=== PATIENT | female | born 1985 | race Caucasian/White ===

== ENCOUNTER 2016-12-10 11:48 | Outpatient (CLI) | payer MEDICAID ==
[~2016-12-10] VITALS: Ht 162.6 cm; Wt 73.8 kg
[2016-12-10 11:59] VITALS: BP 104/57; PULSE 111; RESP 20; Ht 162.6 cm; Wt 73.8 kg
[2016-12-10] MEDS ORDERED: PREN1TAB79 PO (12:02)
--- NOTE | 2016-12-10 12:50 | RADRPT ---
PROCEDURE: US OB biophysical profile. CLINICAL INDICATION: decreased movements, PTL TECHNIQUE: Multiple sonographic images of the pelvis were obtained. The images were reviewed on a PACS workstation. COMPARISON: No prior studies are available for comparison. FINDINGS: There is a single viable intrauterine gestation. Cardiac activity is present with 154 beats per min q[place]. There is a vertex presentation. The placenta is anterior. There is no evidence of placental abruption. There is a normal amount of amniotic fluid with an ZARA = 9.6 cm. Biophysical profile: movement 2/2 tone 2/2. breathing 2/2 ZARA 2/2 Total 02/14 RPTAT: AA . IMPRESSION: Normal biophysical profile. . .Vitaliy Jurado MD, MD Date Time Electronically viewed and signed by .Vitaliy Jurado MD, MD on 12/10/2016 12:49 .S/
--- NOTE | 2016-12-10 13:23 | QN ---
Documentation Comment Laborist Dr Ware's pt 31 y.o. with an IUP at 35w 1d c/o UC's. Upon questioning the UC's are only twice a day x 1 week. No VB or leaking. +FM. PMHx: none. PSHx: C/S x 1. NKDA. T= 98.0 BP 104/57 NST:baseline 140 bpm with accels to 160 bpm. No decels. No UC's. BPP 8/8. ZARA 9.6 cm. A: IUP at 35w 1d. False labor. P: D/C home. F/U with her doctor as scheduled. ROSARIO YEPEZ MD Dec 10, 2016 13:23
--- NOTE | 2016-12-10 13:26 | TRIAGE ---
OB Triage Datetime Report Generated by CPN: 12/10/2016 13:26 Datetime: 12/10/2016 11:55 Time of Arrival: 12/10/2016 11:56 EGA: 35.1 Arrived By: Ambulatory Arrived From: Home Chief Complaint: CRAMP 2 DAILY Movement: Present Contractions: Irregular Rupture of Membranes: Denies Vaginal Bleeding: None Vaginal Discharge: Denies Recent Sexual Intercouse: Denies Abdominal Trauma: Not Applicable Patient Complaints: Cramping Provider Notified: ANDRES Initial Plan: EFM,CALL DR CAMPOS Datetime: 12/10/2016 11:54 Maternal Assessment Level of Consciousness: Fully Conscious Maternal Assessment Level of Consciousness: Fully Conscious DTR's/Clonus: DTRs 2+ DTR's/Clonus: DTRs 2+; No Clonus Headache: Denies Headache: Denies Blurred Vision: No Blurred Vision: No Respiratory Effort: Unlabored; Regular Rhythm; Equal Expansion Breath Sounds, Left: Clear and Equal Breath Sounds, Right: Clear and Equal Nausea/Vomiting: Denies Nausea/Vomiting: Denies RUQ Epigastric Pain: Denies RUQ Epigastric Pain: Denies Facial Edema: None Facial Edema: None Temperature Route: Axillary Fall Risk Assessment History of Falling: (0) No Secondary Diagnosis: (0) No Ambulatory Aid: (0) Bedrest/Nurse Assist IV Therapy: (0) No Gait: (0) Normal/Bedrest/Immobile Mental Status: (0) Oriented to Own Ability Fall Score: 0 Fall Risk Score Definition: No Risk: No action required Labor Evaluation Frequency: NONE AT THIS TIME Pattern: Normal: <= 5 Contractions in 10 Minutes Resting Tone [place]: Relaxed Heart Rate FHR Baseline Rate: 150 Monitor Mode: External US FHR Baseline Changes: No Baseline Change Variability: Moderate 6-25 bpm Accelerations: 15X15 Decelerations: None Category: Category I Pain Assessment Pain Scale: 0 Pain Presence: None/Denies Vaginal Exam Membrane Status: Intact
== END 2016-12-10 13:25 | disposition home or self-care (01) ==
LOC: OBT 11:48 → L-D 11:53 → OBT 13:25
PROVIDERS: ATTEND Obstetrics & Gynecology
DX: O62.9 Abnormality of forces of labor, unspecified (principal); Z3A.35 35 weeks gestation of pregnancy
CPT/HCPCS: 76818; Z7500; G0463

== ENCOUNTER 2017-01-06 10:11 | Inpatient (IN) | payer MEDICAID ==
[~2017-01-06] VITALS: Ht 162.6 cm; Wt 74.4 kg
[~2017-01-06 10:11] MED LIST: PREN1TAB79 PO
[2017-01-06 10:30] VITALS: BP 114/70; PULSE 104; RESP 18
[2017-01-06 10:50] VITALS: BMI 28.1
--- NOTE | 2017-01-06 10:52 | TRIAGE ---
OB Triage Datetime Report Generated by CPN: 01/06/2017 10:51 Datetime: 01/06/2017 10:35 Assessment Type: Triage Maternal Assessment Level of Consciousness: Fully Conscious DTR's/Clonus: DTRs 2+; No Clonus Headache: Denies Blurred Vision: No Respiratory Effort: Unlabored; Regular Rhythm; Equal Expansion Breath Sounds, Left: Clear and Equal Breath Sounds, Right: Clear and Equal Nausea/Vomiting: Denies RUQ Epigastric Pain: Denies Lower Extremities Edema: Bilateral Lower Extremities Degree: 1+ Upper Extremities Edema: None Degree: None Facial Edema: None Fall Risk Assessment History of Falling: (0) No Secondary Diagnosis: (0) No Ambulatory Aid: (0) Bedrest/Nurse Assist IV Therapy: (0) No Gait: (0) Normal/Bedrest/Immobile Mental Status: (0) Oriented to Own Ability Fall Score: 0 Fall Risk Score Definition: No Risk: No action required Datetime: 01/06/2017 10:29 Time of Arrival: 01/06/2017 10:05 EGA: 39.0 Arrived By: Ambulatory Arrived From: Home Chief Complaint: UC, vaginal discharge Movement: Present Contractions: Occasional Rupture of Membranes: Denies Vaginal Discharge: Denies Recent Sexual Intercouse: Denies Abdominal Trauma: Not Applicable Patient Complaints: Contractions Time Provider Notified: 01/06/2017 10:39 Provider Notified: Jeanie Initial Plan: NST, VE Datetime: 01/06/2017 10:19 Vaginal Exam Dilatation (cms): 0.5 Effacement (%): 0 Station: -3 Exam By: Letha RN Datetime: 01/06/2017 10:18 EGA: 35.1 Datetime: 12/10/2016 11:55 EGA: 35.1 Datetime: 12/10/2016 11:54 Fall Score: 0 Fall Risk Score Definition: No Risk: No action required
[2017-01-06] MEDS ORDERED: CARBOPROST 250 MCG INJ IM PRN (11:00)
[2017-01-06] MEDS ORDERED: OXYTOCIN 30 UNITS/LR 500 ML IV PRN (11:00)
[2017-01-06] MEDS ORDERED: METHYLERGONOVINE 0.2 MG INJ IM PRN (11:00)
[2017-01-06] MEDS ORDERED: MISOPROSTOL 200 MCG TAB PR PRN (11:00)
[2017-01-06] MEDS ORDERED: CEFAZOLIN 2 GM/50 ML (PMX) 50 ML IV SCH (11:00)
[2017-01-06] MEDS: LACTATED RINGER'S 1,000 ML IV SCH ×2 (11:05→12:20)
[2017-01-06 11:32] VITALS: BP 114/70; PULSE 104; RESP 18; Ht 162.6 cm; Wt 74.4 kg
[2017-01-06 11:35] LABS: BASOPHILS % 0.3 % (0.0-2.0); HEMATOCRIT 35.8 % (37.0-47.0); LYMPHOCYTES # 1.5 10^3/ul (0.8-2.9); MEAN CORPUSCULAR HEMOGLOBIN 28.6 pg (29.0-33.0); MEAN CORPUSCULAR HGB CONC 33.5 g/dl (32.0-37.0); MEAN CORPUSCULAR VOLUME 85.2 fl (82.0-101.0); MEAN PLATELET VOLUME 10.8 fl (7.4-10.4); MONOCYTE # 0.5 10^3/ul (0.3-0.9); MONOCYTES % 5.1 % (0.0-11.0); NEUTROPHILS % 79.2 % (39.0-77.0); PLATELET COUNT 273 10^3/UL (140-415); RED CELL DISTRIBUTION WIDTH 13.4 % (11.5-14.5); WHITE BLOOD COUNT 10.1 10^3/ul (4.8-10.8)
[2017-01-06 11:42] LABS: ADD SCAN DIFF NO
[2017-01-06 11:52] LABS: INR 0.96; PROTIME 12.8 Sec (12.2-14.2)
[2017-01-06 11:53] LABS: PARTIAL THROMBOPLASTIN TIME 25.8 Sec (25.0-35.0)
[2017-01-06] MEDS ORDERED: CITRIC ACID/SODIUM CITRATE 15 ML CUP ONE (12:30)
[2017-01-06] MEDS ORDERED: METOCLOPRAMIDE 10 MG INJ ONE (12:32)
[2017-01-06] MEDS ORDERED: KETOROLAC 30 MG INJ ONE (12:32)
[2017-01-06] MEDS ORDERED: ONDANSETRON 4 MG INJ ONE (12:32)
[2017-01-06] MEDS ORDERED: morphine SULFATE/PF (10 MG/10 ML) INJ ONE (12:32)
[2017-01-06] MEDS ORDERED: PHENYLephrine (100 MCG/ML) 5ML SYG ONE (12:59)
[2017-01-06] MEDS ORDERED: CITRIC ACID/SODIUM CITRATE 15 ML CUP PO ONE (13:00)
[2017-01-06] MEDS ORDERED: MEPERIDINE 100 MG INJ ONE (13:23)
[2017-01-06] MEDS ORDERED: OXYTOCIN 30 UNITS/LR 500 ML IV ONE (13:32)
--- NOTE | 2017-01-06 13:40 | HP ---
Date/Time of Note Date/Time of Note DATE: 01/06/17 TIME: 13:39 OB - History Hx of Present Free Text/Dictation @39+wks GA with Hx of previous c/section in labor : 2 Para: 1 Care: Good Care Ultrasounds: Normal mid trimester US Medical Complications: None Past Family/Social History * Past Medical, Surgical, Family and Obstetric Histories reviewed from chart. OB Admission Exam Vital Signs Vital Signs Vital Signs Date Time Temp Pulse Resp B/P Pulse Ox O2 Delivery O2 Flow Rate FiO2 01/06/17 11:32 98.6 104 18 114/70 100 01/06/17 10:30 Room Air Physical Exam Abdomen: WNL Extremities: Normal Cervical Dilatation: 1cm Effacement: 75% Membranes: Intact Heart Rate: 140's Accelerations: Accelerations Present Varibility: Moderate Contractions on Admission: 6-10 Minutes Apart Last 72 hours Lab Results CBC & BMP 01/06/17 11:20 OB Assessment/Plan Reason for admission: section Plan: Section GUILLERMO CAMPOS M.D. Jan 06, 2017 13:40
--- NOTE | 2017-01-06 13:42 | OPR ---
Operative Report Planned Procedure Free Text/Dictation 39+wks GA with Hx of previous c/section in labor Procedure date Jan 06, 2017 Procedure(s) Repeat c/section Performed by: GUILLERMO CAMPOS M.D. Assisting provider: CARLEY MACHADO MD Anesthesiologist: ZAYDA PERALTA MD Pre-procedure diagnosis 39+wks GA with Hx of previous c/section in labor Procedure Description Under satisfactory [] anesthesia, the patient was prepped and draped and placed in a supine position, tilted to the left. Pfannenstiel incision was made, carried through the subcutaneous tissue. Bleeders brought under control with electrocautery. Fascia incised to the length of the incision. Rectus muscles from the fascia, divided midline. Peritoneum exposed, entered through a transverse incision. Exploration of abdomen revealed gravid uterus. Bladder flap was developed. Transverse incision was made in the lower segment of the uterus. Amniotic sac ruptured. [] amniotic fluid noted. [] Nasal oropharyngeal suction was performed. The baby was handed to the team for immediate attention. The placenta was delivered manually intact. Uterine cavity was cleaned with wet sponge and drainage established. Uterus closed in 2 layers using [] in continuous fashion. Peritoneal cavity irrigated with warm saline. Sponge, needle and instrument count reported to be correct. Abdominal peritoneum closed with [] continuously. Rectus muscle approximated with []. Fascia closed with [], and skin closed with dermoband. Estimated blood loss [200 ]mL. Urine bag contained []mL of urine Post-Procedure Findings: Live Baby [], Apgars [] and [], weight [], position [], [] presentation []cord. Specimen removed: Yes Complications: None Pt Condition post procedure: stable Disposition: PACU Physician Certification I, the undersigned physician, hereby certify that I have discussed the procedure described in this consent form with this patient (or the patient's legal customer response representative), including: * The risk and benefits of the procedure; * Any adverse reactions that may reasonably be expected to occur; * Any alternative efficacious methods of treatment which may be medically viable ; * The potential problems that may occur during recuperation; * Potential for blood transfusion and associated risks/benefits; and * Any research or economic interest I may have regarding this treatment. I further certify that the patient/legally responsible person was encouraged to ask question and that all questions were answered. GUILLERMO CAMPOS M.D. Jan 06, 2017 13:42
[2017-01-06] MEDS ORDERED: KETOROLAC 30 MG INJ IV PRN (14:00)
[2017-01-06] MEDS ORDERED: HYDROmorphONE 1 MG/ML SYG IV PRN ×3 (14:00)
[2017-01-06] MEDS ORDERED: HYDROmorphONE (0.2 MG/ML) 10ML SYG IV PRN ×3 (14:00)
[2017-01-06] MEDS ORDERED: DIPHENHYDRAMINE 50 MG INJ IV PRN ×2 (14:00)
[2017-01-06] MEDS ORDERED: NALOXONE (0.4 MG/ML) INJ IV PRN (14:00)
[2017-01-06] MEDS ORDERED: ONDANSETRON 4 MG INJ IV PRN ×2 (14:00)
[2017-01-06] MEDS ORDERED: METOCLOPRAMIDE 10 MG INJ IV PRN (14:00)
[2017-01-06] MEDS ORDERED: MEPERIDINE 25 MG INJ IV PRN (14:00)
[2017-01-06] MEDS: OXYTOCIN 30 UNITS/LR 500 ML IV SCH ×2 (15:22→20:15)
[2017-01-06 17:10] LABS: BASOPHILS % 0.1 % (0.0-2.0); HEMOGLOBIN 10.6 g/dl (12.0-16.0); LYMPHOCYTES # 1.5 10^3/ul (0.8-2.9); LYMPHOCYTES % 10.4 % (15.0-51.0); MEAN CORPUSCULAR HEMOGLOBIN 27.7 pg (29.0-33.0); MEAN CORPUSCULAR HGB CONC 32.1 g/dl (32.0-37.0); MEAN CORPUSCULAR VOLUME 86.2 fl (82.0-101.0); MEAN PLATELET VOLUME 10.5 fl (7.4-10.4); MONOCYTES % 6.9 % (0.0-11.0); NEUTROPHIL # 11.9 10^3/ul (1.6-7.5); NEUTROPHILS % 82.2 % (39.0-77.0); PLATELET COUNT 237 10^3/UL (140-415); RED BLOOD COUNT 3.83 10^6/ul (4.20-5.40); RED CELL DISTRIBUTION WIDTH 13.4 % (11.5-14.5); WHITE BLOOD COUNT 14.5 10^3/ul (4.8-10.8)
[2017-01-06 17:11] LABS: ADD SCAN DIFF NO
[2017-01-06] MEDS ORDERED: LACTATED RINGER'S 1,000 ML IV STA (17:20)
[2017-01-06] MEDS ORDERED: SOD CHLORIDE 0.9% 500 ML IV ONE (20:30)
[2017-01-06] MEDS ORDERED: PAROXETINE 10 MG TAB PO ONE (22:55)
[2017-01-06] MEDS ORDERED: SOD CHLORIDE 0.9% 1,000 ML IV ONE (23:00)
[2017-01-07 00:40] VITALS: BP 118/66; PULSE 103; RESP 20
[2017-01-07] MEDS ORDERED: METHYLERGONOVINE 0.2 MG INJ IM PRN (02:00)
[2017-01-07] MEDS ORDERED: OXYTOCIN 30 UNITS/LR 500 ML IV PRN (02:00)
[2017-01-07] MEDS ORDERED: MISOPROSTOL 200 MCG TAB PR PRN (02:00)
[2017-01-07] MEDS ORDERED: CARBOPROST 250 MCG INJ IM PRN (02:00)
[2017-01-07] MEDS: LACTATED RINGER'S 1,000 ML IV SCH ×3 (02:59→17:52)
[2017-01-07 04:10] VITALS: BP 123/58; PULSE 105; RESP 18
--- NOTE | 2017-01-07 07:01 | PN ---
Date/Time of Note Date/Time of Note DATE: 01/07/17 TIME: 06:58 Assessment/Plan VTE Prophylaxis VTE Prophylaxis Intervention: ambulation Lines/Catheters IV Catheter Type (from Nrsg): Peripheral IV Subjective 24 Hr Interval Summary Free Text/Dictation Anesthesia Note; A 31 year olfd female s/p duramorph pod #1 is doing fine. pain is controlled, no N/V, headache, itching, back pain. back is clean, no irritation or infection. Care per surgery team. Exam/Review of Systems Vital Signs Vitals Vital Signs Date Time Temp Pulse Resp B/P Pulse Ox O2 Delivery O2 Flow Rate FiO2 01/07/17 04:10 98.3 105 18 123/58 Room Air 01/07/17 02:35 98 21 Intake and Output 01/06/17 01/06/17 01/07/17 15:00 23:00 07:00 Intake Total 3080 ml 2275 ml 1790 ml Output Total 1798 ml 400 ml 1350 ml Balance 1282 ml 1875 ml 440 ml Results Result Diagram: 01/06/17 1659 Results 24 hrs Laboratory Tests Test 01/06/17 11:20 01/06/17 16:59 White Blood Count 10.1 14.5 #H Red Blood Count 4.20 3.83 L Hemoglobin 12.0 10.6 L Hematocrit 35.8 L 33.0 L Mean Corpuscular Volume 85.2 86.2 Mean Corpuscular Hemoglobin 28.6 L 27.7 L Mean Corpuscular Hemoglobin Concent 33.5 32.1 Red Cell Distribution Width 13.4 13.4 Platelet Count 273 237 Mean Platelet Volume 10.8 H 10.5 H Neutrophils % 79.2 H 82.2 H Lymphocytes % 15.0 10.4 L Monocytes % 5.1 6.9 Eosinophils % 0.0 0.0 Basophils % 0.3 0.1 Nucleated Red Blood Cells % 0.0 0.0 Neutrophils # 8.0 H 11.9 H Lymphocytes # 1.5 1.5 Monocytes # 0.5 1.0 H Eosinophils # 0.0 0.0 Basophils # 0.0 0.0 Nucleated Red Blood Cells # 0.0 0.0 Prothrombin Time 12.8 Prothrombin Time Ratio 1.0 INR International Normalized Ratio 0.96 Activated Partial Thromboplast Time 25.8 Rapid Plasma Reagin NONREACTIVE Medications Medications Current Medications Naloxone HCl (Narcan) 0.1 mg Q2M PRN IV FOR RESP RATE 8 OR LESS; Start at 14:00; Stop 01/07/17 at 13:59 Ketorolac Tromethamine (Toradol) 30 mg Q6H PRN IV PAIN Last administered on 01/07t 02:58; Admin Dose 30 MG; Start 01/06/17 at 14:00; Stop 01/07/17 at 13:59 Hydromorphone HCl (Dilaudid) 1 mg Q3H PRN IV BREAKTHROUGH PAIN; Start 01/06/17 at 14:00; Stop 01/07/17 at 13:59 Hydromorphone HCl (Dilaudid) 0.2 mg Q3H PRN IV PAIN LEVEL 1-5; Start 01/06/17 at 14:00; Stop 01/07/17 at 13:59 Hydromorphone HCl (Dilaudid) 0.4 mg Q3H PRN IV PAIN LEVEL 6-10; Start 01/06/17 at 14:00; Stop 01/07/17 at 13:59 Diphenhydramine HCl (Benadryl) 25 mg Q6H PRN IV ITCHING; Start 01/06/17 at 14: 00; Stop 01/07/17 at 13:59 Ondansetron HCl (Zofran Inj) 4 mg Q6H PRN IV NAUSEA AND/OR VOMITING; Start at 14:00; Stop 01/07/17 at 13:59 Paroxetine HCl 10 mg 10 mg HS PO ; Start 01/07/17 at 21:00 Lactated Ringer's (Lr) 1,000 ml @ 125 mls/hr Q8H IV Last administered on t 02:59; Admin Dose 125 MLS/HR; Start 01/07/17 at 01:32 Oxycodone/ Acetaminophen (Percocet (5/ 325)) 2 tab Q4H PRN PO PAIN LEVEL 7-10; Start 01/07/17 at 14:00 Ibuprofen (Motrin) 600 mg Q6 PO ; Start 01/07/17 at 18:00 Simethicone (Mylicon) 160 mg Q8H PRN PO DISTENSION/GAS/BLOATING; Start 01/07/17 at 02:00 Senna/Docusate Sodium (Senokot-S) 1 tab BID PO ; Start 01/07/17 at 09:00 Diphtheria/ Tetanus/Acell Pertussis 0.5 ml 0.5 ml ONCE ONCE IM* ; Start 01/09/17 at 09:00; Stop 01/09/17 at 09:01 Oxytocin/Lactated Ringer's 500 ml @ 0 mls/hr ONCE PRN IV For Hemorrhage Management; Start 01/07/17 at 02:00 Methylergonovine Maleate (Methergine) 0.2 mg ONCE PRN IM VAGINAL BLEEDING; Start 01/07/17 at 02:00 Carboprost Tromethamine (Hemabate) 250 mcg ONCE PRN [place] VAGINAL BLEEDING; Start 01/07/17 at 02:00 Misoprostol (Cytotec) 1,000 mcg ONCE PRN [place] VAGINAL BLEEDING; Start 01/07/17 at 02:00 ZAYDA PERALTA MD Jan 07, 2017 07:00
[2017-01-07 08:00] VITALS: BP 111/70; PULSE 103; RESP 18
[2017-01-07] MEDS: SENNA/DOCUSATE NA (8.6MG/50MG) TAB PO SCH ×2 (09:00→21:00)
[2017-01-07 09:05] LABS: BASOPHILS % 0.2 % (0.0-2.0); EOSINOPHILS % 0.1 % (0.0-7.0); HEMATOCRIT 26.7 % (37.0-47.0); HEMOGLOBIN 8.5 g/dl (12.0-16.0); LYMPHOCYTES # 1.2 10^3/ul (0.8-2.9); LYMPHOCYTES % 10.9 % (15.0-51.0); MEAN CORPUSCULAR HEMOGLOBIN 27.5 pg (29.0-33.0); MEAN CORPUSCULAR HGB CONC 31.8 g/dl (32.0-37.0); MEAN CORPUSCULAR VOLUME 86.4 fl (82.0-101.0); MEAN PLATELET VOLUME 10.8 fl (7.4-10.4); MONOCYTE # 0.7 10^3/ul (0.3-0.9); MONOCYTES % 6.5 % (0.0-11.0); NEUTROPHILS % 81.9 % (39.0-77.0); PLATELET COUNT 212 10^3/UL (140-415); RED BLOOD COUNT 3.09 10^6/ul (4.20-5.40); RED CELL DISTRIBUTION WIDTH 13.9 % (11.5-14.5)
[2017-01-07 11:56] VITALS: BP 100/62; PULSE 107; RESP 18
--- NOTE | 2017-01-07 13:43 | QN ---
Documentation Comment POD#1 is stable afebrile tolerates diet No VB +Flatus +adequate urine VS stable Gen NAD Abd soft NT mildly distended Genitalia No blood at perinium --->discharge plan tomorrow --->ambulation GUILLERMO CAMPOS M.D. Jan 07, 2017 13:43
[2017-01-07] MEDS ORDERED: KETOROLAC 30 MG INJ IV PRN (15:30)
[2017-01-07 15:55] VITALS: BP 113/69; PULSE 103; RESP 19
[2017-01-07] MEDS ORDERED: NA PHOSPHATE/BIPHOS 133 ML ENEMA PR PRN (17:30)
[2017-01-07] MEDS: IBUPROFEN 600 MG TAB PO SCH (18:00)
[2017-01-07] MEDS ORDERED: ONDANSETRON 4 MG INJ IV PRN (18:30)
[2017-01-07 20:00] VITALS: BP 114/61; PULSE 106; RESP 20
[2017-01-07] MEDS: OXYCODONE/ACETAMINOPHEN (5/325) TAB PO PRN (20:58)
[2017-01-07] MEDS: PAROXETINE 10 MG TAB PO SCH (21:23)
[2017-01-08] MEDS: LACTATED RINGER'S 1,000 ML IV SCH ×3 (00:56→17:13)
--- NOTE | 2017-01-08 01:16 | CONS ---
Date/Time of Note Date/Time of Note DATE: 01/07/17 TIME: 05:57 Assessment/Plan Assessment/Plan Chief Complaint/Hosp Course This is a 31-year-old female who is currently postop day 0 for 39 weeks . #1 tachycardia: At the current times patient's initial tachycardia has improved from 140s now down to the 100-110s. She did receive fluid boluses. She denies any shortness of breath or chest pain. Her oxygenation is 97% on room air. She denies any pleuritic pain on respiration. She does state that she is mildly anxious. I feel at this time that this tachycardia most likely is result of anxiety and also as well as insensible fluid losses from surgery as well as some dehydration. At the current time I would like the patient to receive another bolus of normal saline over 2 hours once her current fluid are completed. We will continue to monitor the patient. If she indeed continues to have tachycardia and has any episodes of desaturation of her oxygen levels may consider a CTA for PE however this time I do not feel that she has a PE. #2 anxiety: Patient has been taking Paxil on a relatively routine basis over the last 9 years. The risks and benefits of taking the medication as well as the risks and benefits of taking the medication while breast-feeding specifically were discussed with the patient patient was previously on Paxil during her last and was breast-feeding at that time. She understands risks and benefits of this medication. I did state that I would not want her to abruptly stop the medication that she has been on for such a long time however I did recommend that she could consider possibly formula feeding. She however does understand the risks and benefits and she would like to continue breast-feeding at this time. I did review the safety profiles of Paxil as well as other SSRIs with the patient and from the literature data it does appear that Paxil to be relatively safer option as compared to other SSRIs though there are risks with this medication as well and the patient understands that. Thank you for this consultation we will follow this patient with you. Problems: Consultation Date/Type/Reason Admit Date/Time Jan 06, 2017 at 10:40 Date of Consultation: Jan 06, 2017 Type of Consultation: Medicine Reason for Consultation Tachycardia Hx of Present Illness This is a 31-year-old female now who was admitted at 39 weeks of and chest recently went a earlier today. Patient was noted to have a history of anxiety and has been on Paxil for approximately 9 years. Patient was noted to be tachycardic and medicine was called to evaluate. Initial heart rate was noted to be in the 140s. Patient did receive fluid challenge. And upon my examination patient's heart rate had improved to the 100 -110 range. EKG showed sinus tachycardia with no overt ST or T-wave abnormalities noted. Patient's blood pressure was was within acceptable values of 126/72. While discussing with the patient she did state that she has been on Paxil for approximately 9 years and she was on Paxil during her previous and has remained on it during this . She has a history of anxiety. Currently breast-feeding. Allergies: NKDA Occasions: See MAR Const: Fatigue, anxiety Eyes : No pain discharge or redness or change in visual acuity ENT: No pain, sore throat, congestion, congestion, dysphagia or discharge Respiratory: No shortness of breath, cough, sputum, wheezing, or pleuritic pain Cardiovascular: No chest pain, palpitation, PND, or edema GI : Abdominal pain at the incision site from her Genitourinary: No dysuria, hematuria, flank pain , discharge or CVA tenderness Musculoskeletal: No joint pain, back pain, neck pain, restricted range of motion in neck or joints Skin: No rash, bruising or hives Neuro: No headache, dizziness, syncope, seizure, focal weakness Endocrine: No polyuria, polydipsia, temperature intolerance Psych: Anxiety, no hallucinations or suicidal ideation Past Medical History Anxiety Past Surgical History 2 Family History Significant Family History: hypertension Social History Alcohol Use: none Smoking Status: Never smoker Drug Use: none Exam/Review of Systems Vital Signs Vitals Vital Signs Date Time Temp Pulse Resp B/P Pulse Ox O2 Delivery O2 Flow Rate FiO2 01/07/17 04:10 98.3 105 18 123/58 Room Air 01/07/17 02:35 98 21 Intake and Output 01/06/17 01/06/17 01/07/17 14:59 22:59 06:59 Intake Total 3080 ml 2275 ml 1350 ml Output Total 1798 ml 400 ml 1275 ml Balance 1282 ml 1875 ml 75 ml Exam General: Patient is a well-developed female who is appears slightly anxious, she is breast-feeding her baby at the bedside. HEENT: Atraumatic, normocephalic. The pupils are equal, round and reactive. Extraocular motor are intact Neck: Supple with full range of motion. No rigidity or meningismus Chest: Nontender Lungs: Clear to auscultation bilaterally no crackles rales or wheezing Heart: Normal S1-S2, Regular rhythm and rate. Abdomen: Soft , nontender, nondistended , bowel sounds are present. No guarding no rebound tenderness , No masses or organomegaly. No costovertebral temporal angle mass Extremities: Normal to inspection, no edema no cyanosis Neurologic: Normal mental status, speech normal, cranial nerves II through XII are intact, motor and sensory are intact, no focal weakness Results Result Diagram: 01/06/17 2418 Results 24 hrs Laboratory Tests Test 01/06/17 11:20 01/06/17 16:59 White Blood Count 10.1 14.5 #H Red Blood Count 4.20 3.83 L Hemoglobin 12.0 10.6 L Hematocrit 35.8 L 33.0 L Mean Corpuscular Volume 85.2 86.2 Mean Corpuscular Hemoglobin 28.6 L 27.7 L Mean Corpuscular Hemoglobin Concent 33.5 32.1 Red Cell Distribution Width 13.4 13.4 Platelet Count 273 237 Mean Platelet Volume 10.8 H 10.5 H Neutrophils % 79.2 H 82.2 H Lymphocytes % 15.0 10.4 L Monocytes % 5.1 6.9 Eosinophils % 0.0 0.0 Basophils % 0.3 0.1 Nucleated Red Blood Cells % 0.0 0.0 Neutrophils # 8.0 H 11.9 H Lymphocytes # 1.5 1.5 Monocytes # 0.5 1.0 H Eosinophils # 0.0 0.0 Basophils # 0.0 0.0 Nucleated Red Blood Cells # 0.0 0.0 Prothrombin Time 12.8 Prothrombin Time Ratio 1.0 INR International Normalized Ratio 0.96 Activated Partial Thromboplast Time 25.8 Rapid Plasma Reagin NONREACTIVE Medications Medications Current Medications Naloxone HCl (Narcan) 0.1 mg Q2M PRN IV FOR RESP RATE 8 OR LESS; Start at 14:00; Stop 01/07/17 at 13:59 Ketorolac Tromethamine (Toradol) 30 mg Q6H PRN IV PAIN Last administered on 01/07t 02:58; Admin Dose 30 MG; Start 01/06/17 at 14:00; Stop 01/07/17 at 13:59 Hydromorphone HCl (Dilaudid) 1 mg Q3H PRN IV BREAKTHROUGH PAIN; Start 01/06/17 at 14:00; Stop 01/07/17 at 13:59 Hydromorphone HCl (Dilaudid) 0.2 mg Q3H PRN IV PAIN LEVEL 1-5; Start 01/06/17 at 14:00; Stop 01/07/17 at 13:59 Hydromorphone HCl (Dilaudid) 0.4 mg Q3H PRN IV PAIN LEVEL 6-10; Start 01/06/17 at 14:00; Stop 01/07/17 at 13:59 Diphenhydramine HCl (Benadryl) 25 mg Q6H PRN IV ITCHING; Start 01/06/17 at 14: 00; Stop 01/07/17 at 13:59 Ondansetron HCl (Zofran Inj) 4 mg Q6H PRN IV NAUSEA AND/OR VOMITING; Start at 14:00; Stop 01/07/17 at 13:59 Paroxetine HCl 10 mg 10 mg HS PO ; Start 01/07/17 at 21:00 Lactated Ringer's (Lr) 1,000 ml @ 125 mls/hr Q8H IV Last administered on 02:59; Admin Dose 125 MLS/HR; Start 01/07/17 at 01:32 Oxycodone/ Acetaminophen (Percocet (5/ 325)) 2 tab Q4H PRN PO PAIN LEVEL 7-10; Start 01/07/17 at 14:00 Ibuprofen (Motrin) 600 mg Q6 PO ; Start 01/07/17 at 18:00 Simethicone (Mylicon) 160 mg Q8H PRN PO DISTENSION/GAS/BLOATING; Start 01/07/17 at 02:00 Senna/Docusate Sodium (Senokot-S) 1 tab BID PO ; Start 01/07/17 at 09:00 Diphtheria/ Tetanus/Acell Pertussis 0.5 ml 0.5 ml ONCE ONCE IM* ; Start 01/09/17 at 09:00; Stop 01/09/17 at 09:01 Oxytocin/Lactated Ringer's 500 ml @ 0 mls/hr ONCE PRN IV For Hemorrhage Management; Start 01/07/17 at 02:00 Methylergonovine Maleate (Methergine) 0.2 mg ONCE PRN IM VAGINAL BLEEDING; Start 01/07/17 at 02:00 Carboprost Tromethamine (Hemabate) 250 mcg ONCE PRN IM VAGINAL BLEEDING; Start 01/07/17 at 02:00 Misoprostol (Cytotec) 1,000 mcg ONCE PRN [place] VAGINAL BLEEDING; Start 01/07/17 at 02:00 ZORAIDA MOLINA Jan 07, 2017 06:10
[2017-01-08] MEDS: OXYCODONE/ACETAMINOPHEN (5/325) TAB PO PRN (01:53)
[2017-01-08 04:00] VITALS: BP 112/70; PULSE 89; RESP 20
[2017-01-08] MEDS: IBUPROFEN 600 MG TAB PO SCH ×5 (06:01→20:39)
[2017-01-08 07:30] VITALS: BP 101/61; RESP 16
[2017-01-08] MEDS: SENNA/DOCUSATE NA (8.6MG/50MG) TAB PO SCH ×2 (09:00→21:00)
--- NOTE | 2017-01-08 09:47 | CONS ---
Date/Time of Note Date/Time of Note DATE: 01/08/17 TIME: 09:41 Assessment/Plan Assessment/Plan Chief Complaint/Hosp Course 1. Sinus tachycardia. Most probably multifactorial in origin secondary to underlying anemia, dehydration, and anxiety. Resolved with IV hydration. 2. Anxiety. Continue SSRIs. 3. Anemia. Most probably anemia of acute blood loss. Management as per primary. 4. Intrauterine gestation. Status post . Postoperative management as per [employer]. 5. Fluids, electrolytes, and nutrition. Regular diet as tolerated. 6. DVT prophylaxis. Ambulation. 7. Recommendations. Encourage ambulation. Encourage oral intake. No need for further cardiology workup since the patient's tachycardia was caused by underlying anxiety, dehydration, and anemia. Thank you for letting us follow this patient. If you have any questions please call the on-call hospitalist. Case discussed with Dr. Masterson. Case discussed with the patient's RN and the patient's , who were at the bedside. The patient's oxygenation and heart rate confirmed with pulse oximetry. SPO2 and heart rate within normal limits. Problems: Consultation Date/Type/Reason Admit Date/Time Jan 06, 2017 at 10:40 Initial Consult Date 01/06/17 Type of Consultation: Medicine Reason for Consultation Medical Management. 24 HR Interval Summary Free Text/Dictation Patient was complaining of dizziness, blurred vision, and feeling palpitations. Abdominal pain well controlled. Exam/Review of Systems Vital Signs Vitals Vital Signs Date Time Temp Pulse Resp B/P Pulse Ox O2 Delivery O2 Flow Rate FiO2 01/08/17 04:00 98.5 89 20 112/70 Room Air 01/07/17 21:02 95 21 Intake and Output 01/07/17 01/07/17 01/08/17 15:00 23:00 07:00 Intake Total 975 ml 875 ml 875 ml Output Total 1075 ml 1450 ml Balance -100 ml -575 ml 875 ml Exam General: Adequately build 31 year-old female lying in bed in no apparent distress. HEENT: Normocephalic, atraumatic. Eyes: Anicteric sclerae, conjunctivae clear. ENT: Nasal septum midline, oral mucosa moist. Neck supple, no JVD noticed. Respiratory: Bilaterally clear breath sounds. No use of accessory muscles of respiration. No adventitious breath sounds. Cardiovascular: S1, S2 heard. No murmurs or gallops. Abdomen: Protuberant. Linea nigra. Suprapubic dressing. Bowel sounds positive in all 4 quadrants. Genitourinary: Deferred. Extremities: No cyanosis, no clubbing, no edema. Peripheral pulses palpable. Neurologic: Cranial nerves II through XII grossly intact. The patient is awake, alert, and oriented. Skin: Normal skin turgor. No skin rashes. Results Result Diagram: 01/07/17 0700 Medications Medications Current Medications Paroxetine HCl 10 mg 10 mg HS PO Last administered on 01/07/17 21:23; Admin Dose 10 MG; Start 01/07/17 at 21:00 Lactated Ringer's (Lr) 1,000 ml @ 125 mls/hr Q8H IV Last administered on 01:52; Admin Dose 125 MLS/HR; Start 01/07/17 at 01:32 Oxycodone/ Acetaminophen (Percocet (5/ 325)) 2 tab Q4H PRN PO PAIN LEVEL 7-10 Last administered on 01/08/17 01:53; Admin Dose 2 TAB; Start 01/07/17 at 14:00 Ibuprofen (Motrin) 600 mg Q6 PO Last administered on 01/08/17 06:01; Admin Dose 600 MG; Start 01/07/17 at 18:00 Simethicone (Mylicon) 160 mg Q8H PRN PO DISTENSION/GAS/BLOATING Last administered on 01/08/17 02:06; Admin Dose 160 MG; Start 01/07/17 at 02:00 Senna/Docusate Sodium (Senokot-S) 1 tab BID PO ; Start 01/07/17 at 09:00 Diphtheria/ Tetanus/Acell Pertussis 0.5 ml 0.5 ml ONCE ONCE IM* ; Start 01/09/17 at 09:00; Stop 01/09/17 at 09:01 Oxytocin/Lactated Ringer's 500 ml @ 0 mls/hr ONCE PRN IV For Hemorrhage Management; Start 01/07/17 at 02:00 Methylergonovine Maleate (Methergine) 0.2 mg ONCE PRN IM VAGINAL BLEEDING; Start 01/07/17 at 02:00 Carboprost Tromethamine (Hemabate) 250 mcg ONCE PRN IM VAGINAL BLEEDING; Start 01/07/17 at 02:00 Misoprostol (Cytotec) 1,000 mcg ONCE PRN TX VAGINAL BLEEDING; Start 01/07/17 at 02:00 Ketorolac Tromethamine (Toradol) 30 mg Q6H PRN IV PRN Last administered on 15:23; Admin Dose 30 MG; Start 01/07/17 at 15:30; Stop 01/10/17 at 23:45 Sodium Biphosphate/ Sodium Phosphate (Fleet Enema) 133 ml DAILY PRN [place] CONSTIPATION Last administered on 01/07/17 17:38; Admin Dose 133 ML; Start at 17:30 Ondansetron HCl (Zofran Inj) 4 mg Q6H PRN IV NAUSEA AND/OR VOMITING; Start 01/07 at 18:30 [employer]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
[2017-01-08 11:29] VITALS: BP 101/75; PULSE 119
[2017-01-08 15:30] VITALS: BP 115/68; PULSE 88; RESP 18
[2017-01-08 20:15] VITALS: BP 111/79; PULSE 95; RESP 18
[2017-01-08] MEDS: PAROXETINE 10 MG TAB PO SCH (20:39)
[2017-01-09 03:57] VITALS: BP 108/77; PULSE 85; RESP 18
[2017-01-09] MEDS: IBUPROFEN 600 MG TAB PO SCH ×3 (06:00→14:28)
[2017-01-09] MEDS: LACTATED RINGER'S 1,000 ML IV SCH ×2 (08:50→08:51)
[2017-01-09] MEDS ORDERED: DIPHTH/TET/ACEL PERTUSS (ADULT) 0.5 ML VIAL IM* ONE (09:00)
[2017-01-09] MEDS: SENNA/DOCUSATE NA (8.6MG/50MG) TAB PO SCH (09:00)
[2017-01-09 09:12] VITALS: BP 105/67; PULSE 98; RESP 18
--- NOTE | 2017-01-09 20:57 | RADRPT ---
Vent Rate: 105 bpm RR Interval: 0 msec NH Interval: 126 msec QRS Duration: 68 msec QT Interval: 332 msec QTC Interval: 438 msec P-R-T [place]: 50 - 42 - 10 degrees Sinus tachycardia Nonspecific ST abnormality Abnormal ECG Electronically Signed By: Marcelo Connolly [id number]
== END 2017-01-09 16:25 | disposition home or self-care (01) | DRG 765 ==
LOC: OBT 10:11 → L-D 10:12 → OBT 10:40 → L-D 12:30 → PP1 01-07 00:48
PROVIDERS: ADMIT Obstetrics & Gynecology; ATTEND Obstetrics & Gynecology
PROC: 10D00Z1 Extraction of Products of Conception, Low, Open Approach (ICD-10-PCS; principal; 2017-01-06 12:30)
DX: O34.211 Maternal care for low transverse scar from previous cesarean delivery (principal); D62 Acute posthemorrhagic anemia; I97.89 Other postprocedural complications and disorders of the circulatory system, not elsewhere classified; O99.345 Other mental disorders complicating the puerperium; F41.9 Anxiety disorder, unspecified; O90.81 Anemia of the puerperium; R00.0 Tachycardia, unspecified; Z3A.39 39 weeks gestation of pregnancy; Z37.0 Single live birth
CPT/HCPCS: 85025; 85610; 85730; 86592; 86850; 86900; 86901; 86920; 87045; 90715; 93005; 94760; 99464; G0463; J0690; J1885; J2175; J2210; J2274; J2370; J2405; J2590; J2765; J7030; J7040; J7120

== ENCOUNTER 2017-07-24 09:27 | Emergency (ER) | END 2017-07-24 11:39 | disposition home or self-care (01) ==

== ENCOUNTER 2019-02-24 17:34 | Emergency (ER) | payer SELFPAY ==
[~2019-02-24] VITALS: Wt 59.6 kg
[~2019-02-24 17:34] MED LIST changes: +ACET-141 PO; +HYDR-842 PO; +LORA-441 PO; +PENI500T PO; -PREN1TAB79 PO
[2019-02-24 17:42] VITALS: BP 127/73; PULSE 98; RESP 20
--- NOTE | 2019-02-24 18:49 | ERD ---
ER Documentation Chief Complaint Chief Complaint WORSENING VERTIGO; TOOK MED NOT HELPING; NOT IN DISTRESS ROS All systems reviewed and are negative except as per history of present illness. Medications Home Meds Active Scripts Acetaminophen* (Acetaminophen*) 500 MG Extra Strength Tablet, 500 MG PO Q4H PRN for PAIN AND OR ELEVATED TEMP, #30 TAB Prov:ANGELINA RIZZO DO 02/24/19 Penicillin V Potassium* (Penicillin V K*) 500 Mg Tab, 500 MG PO BID for strep throat for 10 Days, #20 TAB Prov:ANGELINA RIZZO DO 02/24/19 Lorazepam* (Ativan*) 0.5 Mg Tablet, 0.5 MG PO BID PRN for VERTIGO, #15 TAB Prov:ANGELINA RIZZO DO 02/24/19 Hydroxyzine Hcl* (Atarax*) 25 Mg Tab, 25 MG PO Q6H PRN for ANXIETY, #30 TAB Prov:SCOTT ORELLANA PA-C 07/24/17 Allergies Allergies: Coded Allergies: No Known Allergy (Unverified , 12/10/16) PMhx/Soc Hx Psychiatric Problems: Yes (ANXIETY) Physical Exam Vitals Vital Signs Date Temp Pulse Resp B/P (MAP) Pulse Ox O2 O2 Flow FiO2 Time Delivery Rate 02/24/19 98.1 98 20 127/73 100 17:42 (91) Physical Exam Const: No acute distress Head: Atraumatic Eyes: Normal Conjunctiva ENT: Normal External Ears, Nose and Mouth. Neck: Full range of motion. No meningismus. Resp: Clear to auscultation bilaterally Cardio: Regular rate and rhythm, no murmurs Abd: Soft, non tender, non distended. Normal bowel sounds Skin: No petechiae or rashes Back: No midline or flank tenderness Ext: No cyanosis, or edema Neur: Awake and alert Psych: Normal Mood and Affect Results 24 hrs Current Medications Medications Dose Sig/Roselyn Start Time Status Last (Trade) Ordered Route PRN Stop Time Admin Dose Reason Admin 6 mg ONCE ONCE 02/24/19 DC Dexamethasone IM 19:00 (Decadron) 02/24/19 19:00 2 mg ONCE ONCE 02/24/19 DC 02/24/19 Dexamethasone PO 19:00 19:16 (Decadron) 02/24/19 19:01 Lorazepam 0.5 mg ONCE ONCE 02/24/19 DC 02/24/19 (Ativan) PO 19:00 19:09 8/18/19 19:01 Procedures/MDM Medical Decision Making: This is an otherwise healthy, well appearing patient presenting with uncomplicated pharyngitis. I have low clinical suspicion for peritonsillar abscess, epiglottitis, retropharyngeal abscess or other deep space infection of the neck. Patient has the following clinical criteria for bacterial pharyngitis (1 point each): Tonsillar exudate Anterior Cervical Adenopathy Fever > 38C (100.4) Lack of cough Age 3-14 Age >45, subtract 1 point Patient has a score 0-1, no testing or antibiotics are indicated. Patient has a score 2-3, rapid strep testing is indicated. Patient has a score of >4, testing, antibiotics (penicillin preferred) and one- time dose of dexamethasone are indicated. Rapid test is negative, no antibiotics indicated at this time. Rapid test is positive, antibiotics (penicillin preferred) and one-time dose of dexamethasone are indicated. Mononucleosis was considered for symptoms lasting >1 week. ED course: Patient was given . Symptoms improved with treatment. Prescription(s): Patient given prescription for supportive medication(s). Prior to discharge all questions answered. Patient's parent agree with treatment plan and I discussed strict return precautions for worsening of symptoms, increased respiratory effort, signs of NEWS DIRECTOR infection including but not limited to changes in mental status or vomiting, or fever for more than 5 days. Recommended to follow up with primary physician in 24-48 hours for recheck. If unable to arrange follow-up, patient is instructed to return to the ED for reassessment. Patient's partent given verbal and written discharge instructions and acknowledge understanding. Patient stable on discharge from the ED. Disclaimer: Inadvertent spelling and grammatical errors are likely due to EHR/dictation software use and do not reflect on the overall quality of patient care. Also, please note that the electronic time recorded on this note does not necessarily reflect the actual time of the patient encounter. ANGELINA RIZZO DO Feb 24, 2019 18:49
[2019-02-24] MEDS ORDERED: DEXAMETHASONE 10 MG/ML 1 ML INJ IM ONE (19:00)
[2019-02-24] MEDS ORDERED: DEXAMETHASONE 2 MG TAB PO ONE (19:00)
[2019-02-24] MEDS ORDERED: LORAZEPAM 0.5 MG TAB PO ONE (19:00)
== END 2019-02-24 20:34 | disposition home or self-care (01) ==
LOC: FTE 17:34
DX: J02.9 Acute pharyngitis, unspecified (principal)
CPT/HCPCS: 99283